=== PATIENT | male | born 1990 | race Caucasian/White ===

== ENCOUNTER 2016-09-24 12:46 | Emergency (ER) | payer OTHER ==
--- NOTE | 2016-09-24 16:00 | ED ---
GI Bleed HPI - General Chief complaint: GI Bleed Stated complaint: Blood in stool Time Seen by Provider: 09/24/16 15:22 Source: patient, RN notes reviewed Mode of arrival: ambulatory Limitations: no limitations - History of Present Illness Initial comments: Patient is a 26-year-old male presents to the emergency room for evaluation of possible GI bleed. Patient states that he has had diarrhea since yesterday. Patient states that he took Pepto-Bismol yesterday morning. Patient states today he noticed black tarry stools. Patient states he's having mid abdominal pain. Patient states he's had about a dozen episodes of diarrhea today. Patient denies recent travel outside the country. Patient denies sick contacts. Patient denies taking recent antibiotics. Patient denies trying new foods. Patient denies recent changes in medications. Patient also states that he's had on and off bright red blood in his stools the past year. Patient denies following up with a physician regarding this issue. Patient denies rectal pain. Patient denies pain or burning during urination. Patient denies chest pain or shortness of breath. Patient states after his episode of diarrhea he felt very dizzy and nauseous. Patient denies shortness of breath. Patient denies any personal or family history of diverticulitis, ulcerative colitis or chronic disease. Patient denies history of hemorrhoids or anal fissures. - Related Data Home Medications Medication Instructions Recorded Confirmed Citalopram Hydrobromide [CeleXA] 20 mg PO HS 09/24/16 09/24/16 Allergies Allergy/AdvReac Type Severity Reaction Status Date / Time No Known Allergies Allergy Verified 09/24/16 15:13 Review of Systems ROS Statement: Those systems with pertinent positive or pertinent negative responses have been documented in the HPI. ROS Other: All systems not noted in ROS Statement are negative. Past Medical History Past Medical History: Mitral Valve Prolapse (MVP) History of Any Multi-Drug Resistant Organisms: None Reported Past Surgical History: Hernia Repair Past Psychological History: No Psychological Hx Reported Smoking Status: Never smoker Past Alcohol Use History: Occasional Past Drug Use History: None Reported General Exam - General Exam Comments Initial Comments: Laying in exam room, no acute distress. Limitations: no limitations General appearance: alert, in no apparent distress Head exam: Present: atraumatic, normocephalic, normal inspection Eye exam: Present: normal appearance ENT exam: Present: normal exam Neck exam: Present: normal inspection Respiratory exam: Present: normal lung sounds bilaterally. Absent: respiratory distress Cardiovascular Exam: Present: regular rate, normal rhythm, normal heart sounds GI/Abdominal exam: Present: soft, normal bowel sounds. Absent: distended, tenderness, guarding, rebound, rigid Rectal exam: Present: normal inspection, normal rectal tone. Absent: hemorrhoids Extremities exam: Present: normal inspection Back exam: Present: normal inspection Neurological exam: Present: alert, oriented X3, CN II-XII intact, normal gait Psychiatric exam: Present: normal affect, normal mood Skin exam: Present: warm, dry, intact, normal color. Absent: rash Course Vital Signs 09/24/16 09/24/16 09/24/16 14:03 16:12 18:00 Temperature 98.0 F Pulse Rate 61 59 L 61 Respiratory 16 20 20 Rate Blood Pressure 116/58 113/53 113/67 O2 Sat by Pulse 99 97 100 Oximetry 09/24/16 18:13 Temperature 98 F Pulse Rate 61 Respiratory 20 Rate Blood Pressure 113/67 O2 Sat by Pulse 100 Oximetry Medical Decision Making - Medical Decision Making Patient is a 26-year-old female presents to the emergency room for evaluation of diarrhea and black tarry stools. Patient does admit he took Pepto-Bismol yesterday. Did not get a decent fecal occult. Barely any stool on rectal exam. Other labs show no concerning findings. Patient did have a vasovagal episode while labs were drawn. Patient is alert and oriented. Vitals are stable. Patient states he is feeling better after nausea medication given. KUB x-ray suggestive of enteritis or ileus. No bowel obstruction or free air. Advised patient to follow-up with primary care provider regarding the rectal bleeding. Patient states uhe understands everything that was discussed with him. Return parameters discussed. Case discussed with Dr. Herring. - Lab Data Result diagrams: 09/24/16 15:59 09/24/16 15:59 Lab Results 09/24/16 09/24/16 09/24/16 Range/Units 15:59 15:59 16:05 WBC 3.9 (3.8-10.6) k/uL RBC 5.04 (4.30-5.90) m/uL Hgb 15.0 (13.0-17.5) gm/dL Hct 44.8 (39.0-53.0) % MCV 89.0 (80.0-100.0) fL MCH 29.8 (25.0-35.0) pg MCHC 33.5 (31.0-37.0) g/dL RDW 12.7 (11.5-15.5) % Plt Count 242 (150-450) k/uL Neutrophils % (Manual) 54.0 % Band Neutrophils % 1.0 % Lymphocytes % (Manual) 35.0 % Monocytes % (Manual) 4.0 % Eosinophils % (Manual) 6.0 % Neutrophils # (Manual) 2.1 (1.3-7.7) k/uL Lymphocytes # (Manual) 1.4 (1.0-4.8) k/uL Monocytes # (Manual) 0.2 (0-1.0) k/uL Eosinophils # (Manual) 0.2 (0-0.7) k/uL Nucleated RBCs 0 (0-0) /100 WBC Manual Slide Review Performed Toxic Granulation Present Sodium 139 (137-145) mmol/L Potassium 4.0 (3.5-5.1) mmol/L Chloride 105 (98-107) mmol/L Carbon Dioxide 27 (22-30) mmol/L Anion Gap 7 mmol/L BUN 11 (9-20) mg/dL Creatinine 0.76 (0.66-1.25) mg/dL Est GFR (MDRD) Af Amer >60 (>60 ml/min/1.73 sqM) Est GFR (MDRD) Non-Af >60 (>60 ml/min/1.73 sqM) Glucose 86 (74-99) mg/dL POC Glucose (mg/dL) 96 (75-99) mg/dL POC Glu Medical Administrative Technician ID Aaliyah, Lauren Calcium 8.8 (8.4-10.2) mg/dL Total Bilirubin 0.5 (0.2-1.3) mg/dL AST 28 (17-59) U/L ALT 34 (21-72) U/L Alkaline Phosphatase 71 (38-126) U/L Total Protein 7.1 (6.3-8.2) g/dL Albumin 4.0 (3.5-5.0) g/dL Amylase 43 (30-110) U/L Lipase 73 (23-300) U/L Stool Occult Blood (Negative) 09/24/16 Range/Units 17:00 WBC (3.8-10.6) k/uL RBC (4.30-5.90) m/uL Hgb (13.0-17.5) gm/dL Hct (39.0-53.0) % MCV (80.0-100.0) fL MCH (25.0-35.0) pg MCHC (31.0-37.0) g/dL RDW (11.5-15.5) % Plt Count (150-450) k/uL Neutrophils % (Manual) % Band Neutrophils % % Lymphocytes % (Manual) % Monocytes % (Manual) % Eosinophils % (Manual) % Neutrophils # (Manual) (1.3-7.7) k/uL Lymphocytes # (Manual) (1.0-4.8) k/uL Monocytes # (Manual) (0-1.0) k/uL Eosinophils # (Manual) (0-0.7) k/uL Nucleated RBCs (0-0) /100 WBC Manual Slide Review Toxic Granulation Sodium (137-145) mmol/L Potassium (3.5-5.1) mmol/L Chloride (98-107) mmol/L Carbon Dioxide (22-30) mmol/L Anion Gap mmol/L BUN (9-20) mg/dL Creatinine (0.66-1.25) mg/dL Est GFR (MDRD) Af Amer (>60 ml/min/1.73 sqM) Est GFR (MDRD) Non-Af (>60 ml/min/1.73 sqM) Glucose (74-99) mg/dL POC Glucose (mg/dL) (75-99) mg/dL POC Glu Medical Administrative Technician ID Calcium (8.4-10.2) mg/dL Total Bilirubin (0.2-1.3) mg/dL AST (17-59) U/L ALT (21-72) U/L Alkaline Phosphatase (38-126) U/L Total Protein (6.3-8.2) g/dL Albumin (3.5-5.0) g/dL Amylase (30-110) U/L Lipase (23-300) U/L Stool Occult Blood Positive (Negative) - Radiology Data Radiology results: report reviewed, image reviewed Disposition Clinical Impression: Diarrhea Disposition: HOME SELF-CARE Condition: Good Instructions: Acute Diarrhea (ED) Additional Instructions: Drink plenty of fluids. Please follow up with primary care provider in 1-2 days. If any new symptom arises or symptoms worsen, return to ER as soon as possible. Referrals: Munira Valenzuela MD [Primary Care Provider] - 1-2 days Time of Disposition: 18:01
[2016-09-24] MEDS ORDERED: ONDANSETRON 4 MG/2 ML VIAL IVP STA (16:02)
[2016-09-24] MEDS ORDERED: SODIUM CHLORIDE 0.9% 1,000 ML IV ONE (16:02)
[2016-09-24] MEDS ORDERED: HYDROcodone/APAP 5-325MG 1 EACH TAB PO STA (16:05)
[2016-09-24 16:09] LABS: Glucose,Whole Blood 96 mg/dL (75-99)
[2016-09-24 16:12] LABS: Aty Lym Flag Slight; CH 29.7; CHCM 33.5; HCT 44.8 % (39.0-53.0); HDW 2.61; MCH 29.8 pg (25.0-35.0); MCHC 33.5 g/dL (31.0-37.0); Mean Platelet Volume 6.7; RBC 5.04 m/uL (4.30-5.90); RDW 12.7 % (11.5-15.5); WBC 3.9 k/uL (3.8-10.6); WBC (Perox) 3.65
[2016-09-24 16:14] VITALS: RESP 20
[2016-09-24 16:26] LABS: ALT 34 U/L (21-72); AST 28 U/L (17-59); Alkaline Phosphatase 71 U/L (38-126); Amylase 43 U/L (30-110); Anion Gap 7 mmol/L; Blood Urea Nitrogen 11 mg/dL (9-20); Calcium 8.8 mg/dL (8.4-10.2); Carbon Dioxide 27 mmol/L (22-30); Chloride 105 mmol/L (98-107); Glucose 86 mg/dL (74-99); Non-African American GFR(MDRD) >60 (>60 ml/min/1.73 sqM); Sodium 139 mmol/L (137-145); Total Bilirubin 0.5 mg/dL (0.2-1.3); Total Protein 7.1 g/dL (6.3-8.2)
[2016-09-24 16:39] LABS: Add Differential Manual Differential
[2016-09-24 17:06] LABS: Manual Review Performed; Nucleated Red Blood Cells 0 /100 WBC (0-0); Total Cells Counted 100; Toxic Granulation Present
--- NOTE | 2016-09-24 17:49 | XR ---
EXAMINATION TYPE: XR KUB DATE OF EXAM: 09/24/2016 5:33 PM CLINICAL DATA: 26-year-old male abdominal pain, blood in stool. COMPARISON: None FINDINGS: Lung bases are clear. No evidence for free intraperitoneal air. No dilated small bowel loops. Small air-fluid levels are present in the central pelvis and within the ascending colon. Scattered mild stool is present. No suspicious calcifications. IMPRESSION: Small air-fluid levels in the lower abdomen and descending colon. Correlate for enteritis or ileus. N o evidence for bowel obstruction or free air.
[2016-09-24 18:08] VITALS: BP 113/67; PULSE 61
[2016-09-24 18:14] VITALS: TEMP 98
== END 2016-09-24 18:17 | disposition home or self-care (01) ==
LOC: EC 12:46
DX: R19.7 Diarrhea, unspecified (principal); R10.9 Unspecified abdominal pain; Z79.899 Other long term (current) drug therapy
CPT/HCPCS: 36415; 80053; 82150; 83690; 85025; 82272; 74000; 99285; 96374; 96361 ×2; J2405

== ENCOUNTER 2019-06-06 11:14 | Inpatient (IN) | payer BC ==
[2019-06-06] MEDS ORDERED: SODIUM CHLORIDE 0.9% 1,000 ML IV STA (12:02)
[2019-06-06] MEDS ORDERED: KETOROLAC 30 MG/ML 1 ML VIAL IVP STA (12:02)
--- NOTE | 2019-06-06 12:11 | ED ---
General Adult HPI - General Source: patient, RN notes reviewed Mode of arrival: wheelchair Limitations: no limitations <Guerrero Amaya - Last Filed: 06/06/19 17:37> <Akila Dumont - Last Filed: 06/13/19 15:10> - General Chief complaint: Fever Stated complaint: flu symptoms Time Seen by Provider: 06/06/19 11:40 - History of Present Illness Initial comments: 29-year-old male with a past medical history mitral valve prolapse presents to the emergency department for a chief complaint of fever. Patient has had a fever for a week now. Family member states patient has had cough congestion sore throat. States that he was seen at [facility] about 4 days ago and tested negative for influenza as well as pneumonia with chest x-ray. States patient does not seem to be getting better. He saw his doctor yesterday and was perscribed azithromycin. Patient started the antibiotic today. However he is lightheaded and nauseous so presented to the emergency department. States his body aches are also causing him significant pain generalized. Patient admits to mild chest pain as well.Patient has no other complaints at this time including shortness of breath, abdominal pain, nausea or vomiting, headache, or visual changes. (Guerrero Amaya) - Related Data Home Medications Medication Instructions Recorded Confirmed Citalopram Hydrobromide [CeleXA] 20 mg PO DIRECTED 09/24/16 06/06/19 Albuterol Sulfate [Ventolin HFA] 2 puff INHALATION RT-Q6H PRN 06/06/19 06/06/19 Ibuprofen 600 mg PO Q6H PRN 06/06/19 06/06/19 Sertraline HCl [Zoloft] 100 mg PO DIRECTED 06/06/19 06/06/19 Previous Rx's Medication Instructions Recorded Levofloxacin [Levaquin] 750 mg PO HS #7 tab 06/10/19 Oseltamivir [Tamiflu] 75 mg PO Q12HR #3 cap 06/10/19 Allergies Allergy/AdvReac Type Severity Reaction Status Date / Time No Known Allergies Allergy Verified 06/06/19 14:49 Review of Systems ROS Other: All systems not noted in ROS Statement are negative. <Guerrero Amaya - Last Filed: 06/06/19 17:37> ROS Other: All systems not noted in ROS Statement are negative. <Akila Dumont A - Last Filed: 06/13/19 15:10> ROS Statement: Those systems with pertinent positive or pertinent negative responses have been documented in the HPI. Past Medical History Past Medical History: Mitral Valve Prolapse (MVP) History of Any Multi-Drug Resistant Organisms: None Reported Past Surgical History: Hernia Repair Past Psychological History: No Psychological Hx Reported Smoking Status: Never smoker Past Alcohol Use History: Occasional Past Drug Use History: None Reported - Past Family History Mother Family Medical History: Congestive Heart Failure (CHF), Myocardial Infarction (VA), Thyroid Disorder Additional Family Medical History / Comment(s): Mother had a VA at the age of 45yrs,. Father Family Medical History: Diabetes Mellitus, Hypertension Additional Family Medical History / Comment(s): Type II diabetes. <Guerrero Amaya P - Last Filed: 06/06/19 17:37> General Exam Limitations: no limitations General appearance: alert, in no apparent distress Head exam: Present: atraumatic, normocephalic, normal inspection Eye exam: Present: normal appearance, PERRL, EOMI. Absent: scleral icterus, co njunctival injection, periorbital swelling ENT exam: Present: normal exam, mucous membranes moist, TM's normal bilaterally, normal external ear exam. Absent: normal oropharynx (Erythematous throat however uvula midline, no tonsillar exudates noted bilaterally) Neck exam: Present: normal inspection, full ROM. Absent: tenderness, meningismus, lymphadenopathy Respiratory exam: Present: normal lung sounds bilaterally. Absent: respiratory distress, wheezes, rales, rhonchi, stridor Cardiovascular Exam: Present: regular rate, normal rhythm, normal heart sounds. Absent: systolic murmur, diastolic murmur, rubs, gallop, clicks GI/Abdominal exam: Present: soft, normal bowel sounds. Absent: distended, tenderness, guarding, rebound, rigid Back exam: Absent: CVA tenderness (R), CVA tenderness (L) Neurological exam: Present: alert <Guerrero Amaya P - Last Filed: 06/06/19 17:37> Course Vital Signs 06/06/19 06/06/19 06/06/19 11:15 12:42 14:43 Temperature 102.5 F H 103.7 F H Pulse Rate 100 79 71 Respiratory 18 18 16 Rate Blood Pressure 116/68 132/68 113/64 O2 Sat by Pulse 97 96 Oximetry 06/06/19 06/06/19 06/06/19 14:54 15:00 15:25 Temperature 98.7 F Pulse Rate 72 76 72 Respiratory 16 Rate Blood Pressure 131/70 O2 Sat by Pulse 98 Oximetry EKG Findings - EKG Comments: EKG Findings:: Normal sinus rhythm, ventricular rate 82, RI interval 132, QTC 41 <Guerrero Amaya - Last Filed: 06/06/19 17:37> Medical Decision Making - Lab Data Result diagrams: 06/06/19 12:40 06/06/19 12:40 <Guerrero Amaya - Last Filed: 06/06/19 17:37> - Lab Data Result diagrams: 06/10/19 09:05 06/09/19 09:17 <Akila Dumont - Last Filed: 06/13/19 15:10> - Medical Decision Making Patient is febrile here in the emergency department. He has a fever of 103.7. Patient was given Toradol and Tylenol. Exam reveals diminished lung sounds bilaterally. Patient does have a history of asthma and was given a breathing tr eatment here. CBC unremarkable. White blood cell count is 9.4. CMP does show mild transaminitis, of questionable clinical significance. Chest x-ray showed patient had a focal multilobar pneumonia. She does not have any medical history aside from asthma and mitral valve prolapse, no immunosuppressants onboard aside from 1 dose of steroids 2 days ago from [facility]. Patient also tested for influenza B+. Patient was started on Rocephin and azithromycin. At this time given multifocal multilobar pneumonia as well as concurrent influenza patient will be treated with IV antibiotics. Dr. Dumont spoke with Dr. Pierson who recommends starting Tamiflu as well as consult to infectious disease. (Guerrero Amaya) I was available for consultation in the emergency department. The history and physical exam were done by the midlevel provider. I was consulted for this patients care. I reviewed the case with the midlevel provider and based on their presentation of the patient, I agree with the assessment, medical decision making and plan of care as documented. I discussed the case with Dr. Pierson who accepted admission. Chart was dictated using [employer] dictation software. Attempts were made to correct any dictation errors however some typographical errors may persist. (Akila Dumont) - Lab Data Lab Results 06/06/19 06/06/19 06/06/19 Range/Units 12:40 12:40 12:40 WBC 9.4 (3.8-10.6) k/uL RBC 5.07 (4.30-5.90) m/uL Hgb 14.7 (13.0-17.5) gm/dL Hct 44.1 (39.0-53.0) % MCV 86.9 (80.0-100.0) fL MCH 29.0 (25.0-35.0) pg MCHC 33.4 (31.0-37.0) g/dL RDW 12.2 (11.5-15.5) % Plt Count 248 (150-450) k/uL Neutrophils % 87 % Lymphocytes % 6 % Monocytes % 5 % Eosinophils % 0 % Basophils % 1 % Neutrophils # 8.2 H (1.3-7.7) k/uL Lymphocytes # 0.6 L (1.0-4.8) k/uL Monocytes # 0.5 (0-1.0) k/uL Eosinophils # 0.0 (0-0.7) k/uL Basophils # 0.1 (0-0.2) k/uL Sodium 136 L (137-145) mmol/L Potassium 4.1 (3.5-5.1) mmol/L Chloride 99 (98-107) mmol/L Carbon Dioxide 26 (22-30) mmol/L Anion Gap 11 mmol/L BUN 7 L (9-20) mg/dL Creatinine 0.78 (0.66-1.25) mg/dL Est GFR (CKD-EPI)AfAm >90 (>60 ml/min/1.73 sqM) Est GFR (CKD-EPI)NonAf >90 (>60 ml/min/1.73 sqM) Glucose 113 H (74-99) mg/dL Plasma Lactic Acid Hans (0.7-2.0) mmol/L Calcium 8.8 (8.4-10.2) mg/dL Total Bilirubin 1.0 (0.2-1.3) mg/dL AST 67 H (17-59) U/L ALT 67 H (4-49) U/L Alkaline Phosphatase 129 H (38-126) U/L Troponin I (0.000-0.034) ng/mL Total Protein 6.9 (6.3-8.2) g/dL Albumin 3.7 (3.5-5.0) g/dL Heterophile Antibody Negative (Negative) Influenza Type A RNA (Not Detectd) Influenza Type B (PCR) (Not Detectd) Group A Strep Rapid (Negative) 06/06/19 06/06/19 06/06/19 Range/Units 12:40 12:40 12:40 WBC (3.8-10.6) k/uL RBC (4.30-5.90) m/uL Hgb (13.0-17.5) gm/dL Hct (39.0-53.0) % MCV (80.0-100.0) fL MCH (25.0-35.0) pg MCHC (31.0-37.0) g/dL RDW (11.5-15.5) % Plt Count (150-450) k/uL Neutrophils % % Lymphocytes % % Monocytes % % Eosinophils % % Basophils % % Neutrophils # (1.3-7.7) k/uL Lymphocytes # (1.0-4.8) k/uL Monocytes # (0-1.0) k/uL Eosinophils # (0-0.7) k/uL Basophils # (0-0.2) k/uL Sodium (137-145) mmol/L Potassium (3.5-5.1) mmol/L Chloride (98-107) mmol/L Carbon Dioxide (22-30) mmol/L Anion Gap mmol/L BUN (9-20) mg/dL Creatinine (0.66-1.25) mg/dL Est GFR (CKD-EPI)AfAm (>60 ml/min/1.73 sqM) Est GFR (CKD-EPI)NonAf (>60 ml/min/1.73 sqM) Glucose (74-99) mg/dL Plasma Lactic Acid Hans (0.7-2.0) mmol/L Calcium (8.4-10.2) mg/dL Total Bilirubin (0.2-1.3) mg/dL AST (17-59) U/L ALT (4-49) U/L Alkaline Phosphatase (38-126) U/L Troponin I <0.012 (0.000-0.034) ng/mL Total Protein (6.3-8.2) g/dL Albumin (3.5-5.0) g/dL Heterophile Antibody (Negative) Influenza Type A RNA Not Detected (Not Detectd) Influenza Type B (PCR) Detected H (Not Detectd) Group A Strep Rapid Negative (Negative) 06/06/19 Range/Units 12:40 WBC (3.8-10.6) k/uL RBC (4.30-5.90) m/uL Hgb (13.0-17.5) gm/dL Hct (39.0-53.0) % MCV (80.0-100.0) fL MCH (25.0-35.0) pg MCHC (31.0-37.0) g/dL RDW (11.5-15.5) % Plt Count (150-450) k/uL Neutrophils % % Lymphocytes % % Monocytes % % Eosinophils % % Basophils % % Neutrophils # (1.3-7.7) k/uL Lymphocytes # (1.0-4.8) k/uL Monocytes # (0-1.0) k/uL Eosinophils # (0-0.7) k/uL Basophils # (0-0.2) k/uL Sodium (137-145) mmol/L Potassium (3.5-5.1) mmol/L Chloride (98-107) mmol/L Carbon Dioxide (22-30) mmol/L Anion Gap mmol/L BUN (9-20) mg/dL Creatinine (0.66-1.25) mg/dL Est GFR (CKD-EPI)AfAm (>60 ml/min/1.73 sqM) Est GFR (CKD-EPI)NonAf (>60 ml/min/1.73 sqM) Glucose (74-99) mg/dL Plasma Lactic Acid Hans 1.4 (0.7-2.0) mmol/L Calcium (8.4-10.2) mg/dL Total Bilirubin (0.2-1.3) mg/dL AST (17-59) U/L ALT (4-49) U/L Alkaline Phosphatase (38-126) U/L Troponin I (0.000-0.034) ng/mL Total Protein (6.3-8.2) g/dL Albumin (3.5-5.0) g/dL Heterophile Antibody (Negative) Influenza Type A RNA (Not Detectd) Influenza Type B (PCR) (Not Detectd) Group A Strep Rapid (Negative) Disposition Is patient prescribed a controlled substance at d/c from ED?: No Time of Disposition: 14:04 <Guerrero Amaya P - Last Filed: 06/06/19 17:37> <Akila Dumont - Last Filed: 06/13/19 15:10> Clinical Impression: Multifocal pneumonia, Influenza B Disposition: ADMITTED IP TO THIS HOSP Condition: Fair
[2019-06-06 13:09] LABS: Basophils # (A) 0.1 k/uL (0-0.2); Basophils % (A) 1 %; Eosinophils % (A) 0 %; HCT 44.1 % (39.0-53.0); HGB 14.7 gm/dL (13.0-17.5); Lymphocytes # (A) 0.6 k/uL (1.0-4.8); Lymphocytes % (A) 6 %; MCHC 33.4 g/dL (31.0-37.0); MCV 86.9 fL (80.0-100.0); Mean Platelet Volume 7.8; Monocytes # (A) 0.5 k/uL (0-1.0); Monocytes % (A) 5 %; Neutrophils # (A) 8.2 k/uL (1.3-7.7); Neutrophils % (A) 87 %; Platelet Count 248 k/uL (150-450); RBC 5.07 m/uL (4.30-5.90); RDW 12.2 % (11.5-15.5); WBC 9.4 k/uL (3.8-10.6)
--- NOTE | 2019-06-06 13:11 | XR ---
EXAMINATION TYPE: XR chest 2V DATE OF EXAM: 06/06/2019 COMPARISON: Chest x-ray December 15, 2009. HISTORY: Flulike symptoms with cough and fever. TECHNIQUE: Frontal and lateral views of the chest are obtained. FINDINGS: There is multifocal multilobar airspace opacities involving bilateral lower lobes and post erior inferior aspect right upper lobe. No pleural effusion or pneumothorax seen bilaterally. The ca rdiac silhouette size is within normal limits. The osseous structures are intact. IMPRESSION: Bilateral multifocal multilobar pneumonia involving bilateral lower lobes and anterior in ferior aspect right upper lobe.
[2019-06-06 13:12] LABS: ALT 67 U/L (4-49); AST 67 U/L (17-59); African American GFR (CKD) >90 (>60 ml/min/1.73 sqM); Albumin 3.7 g/dL (3.5-5.0); Alkaline Phosphatase 129 U/L (38-126); Anion Gap 11 mmol/L; Blood Urea Nitrogen 7 mg/dL (9-20); Calcium 8.8 mg/dL (8.4-10.2); Carbon Dioxide 26 mmol/L (22-30); Chloride 99 mmol/L (98-107); Glucose 113 mg/dL (74-99); Non-African American GFR(CKD) >90 (>60 ml/min/1.73 sqM); Potassium 4.1 mmol/L (3.5-5.1); Sodium 136 mmol/L (137-145); Total Protein 6.9 g/dL (6.3-8.2)
[2019-06-06] MEDS ORDERED: cefTRIAXone IN SWFI 1,000 MG/10 ML SYRINGE IVP STA (13:29)
[2019-06-06] MEDS ORDERED: AZITHROMYCIN 500 MG in SODIUM CHLORIDE 0.9% 250 ML IVPB STA (13:29)
[2019-06-06] MEDS ORDERED: IPRATROPIUM-ALBUTEROL 3 ML NEB INHALATION STA (13:58)
[2019-06-06] MEDS ORDERED: PNEUMONIA PROTOCOL UTILIZED 1 EACH MISC PO PRN (14:06)
[2019-06-06] MEDS ORDERED: ACETAMINOPHEN TAB 500 MG TAB PO PRN (14:07)
[2019-06-06] MEDS ORDERED: OSELTAMIVIR 75 MG CAP PO STA (17:37)
[2019-06-06] MEDS: SODIUM CHLORIDE 0.9% 1,000 ML IV SCH (18:01)
[2019-06-06] MEDS ORDERED: ALBUTEROL NEBULIZED 2.5 MG/3 ML INHALATION PRN (18:35)
[2019-06-06] MEDS ORDERED: CITALOPRAM HYDROBROMIDE 20 MG TAB PO ONE (18:45)
[2019-06-06] MEDS: IPRATROPIUM-ALBUTEROL 3 ML NEB INHALATION PRN (19:56)
[2019-06-06] MEDS: IBUPROFEN 800 MG TAB PO PRN (21:40)
[2019-06-07] MEDS: SODIUM CHLORIDE 0.9% 1,000 ML IV SCH ×3 (06:07→21:58)
[2019-06-07 07:44] LABS: Basophils % (A) 0 %; Eosinophils # (A) 0.1 k/uL (0-0.7); Eosinophils % (A) 1 %; HCT 39.8 % (39.0-53.0); HGB 13.1 gm/dL (13.0-17.5); Lymphocytes # (A) 1.3 k/uL (1.0-4.8); Lymphocytes % (A) 15 %; MCH 29.3 pg (25.0-35.0); MCV 88.8 fL (80.0-100.0); Mean Platelet Volume 7.6; Monocytes # (A) 0.5 k/uL (0-1.0); Monocytes % (A) 6 %; Neutrophils # (A) 6.6 k/uL (1.3-7.7); Neutrophils % (A) 76 %; Platelet Count 309 k/uL (150-450); RBC 4.48 m/uL (4.30-5.90); RDW 12.3 % (11.5-15.5); WBC 8.6 k/uL (3.8-10.6)
[2019-06-07 07:58] LABS: African American GFR (CKD) >90 (>60 ml/min/1.73 sqM); Anion Gap 7 mmol/L; Blood Urea Nitrogen 7 mg/dL (9-20); Carbon Dioxide 26 mmol/L (22-30); Chloride 108 mmol/L (98-107); Glucose 93 mg/dL (74-99); Non-African American GFR(CKD) >90 (>60 ml/min/1.73 sqM); Potassium 4.3 mmol/L (3.5-5.1); Sodium 141 mmol/L (137-145)
[2019-06-07] MEDS: SERTRALINE 100 MG TAB PO SCH (08:25)
[2019-06-07] MEDS: OSELTAMIVIR 75 MG CAP PO SCH ×2 (08:25→21:58)
[2019-06-07] MEDS: IPRATROPIUM-ALBUTEROL 3 ML NEB INHALATION PRN (08:49)
--- NOTE | 2019-06-07 09:17 | XR ---
EXAMINATION TYPE: XR chest 2V DATE OF EXAM: 06/07/2019 HISTORY: pneumonia. REFERENCE: Previous study dated 06/06/2019. FINDINGS: Bilateral lower lobe and posterior segment right upper lobe pneumonias are again identified . These may have cleared partially from the previous study. No definite pleural fluid is seen. The he art is not enlarged. IMPRESSION: IMPROVING MULTIFOCAL PNEUMONIA.
--- NOTE | 2019-06-07 09:59 | P.HPIM ---
History of Present Illness H&P Date: 06/06/19 29-year-old male with a past medical history mitral valve prolapse presents to the emergency department for a chief complaint of fever. Patient has had a fever for a week now. Family member states patient has had cough congestion sore throat. States that he was seen at [facility] about 4 days ago and tested negative for influenza as well as pneumonia with chest x-ray. States patient does not seem to be getting better. He saw his doctor yesterday and was perscribed azithromycin. Patient started the antibiotic today. However he is lightheaded and nauseous so presented to the emergency department. States his body aches are also causing him significant pain generalized. Patient admits to mild chest pain as well.Patient has no other complaints at this time including shortness of breath, abdominal pain, nausea or vomiting, headache, or visual changes. In the ED patient was found to be febrile with a temperature of 103.7; white blood count was 19.4; CMP shows mild transaminitis; chest x-ray done shows focal multilobar pneumonia; patient was started on IV Rocephin and azithromycin along with Tamiflu for influenza B; patient is admitted to the hospital for further tr eatment and ID evaluation Review of Systems CONSTITUTIONAL: No fever, no malaise, no fatigue. HEENT: No recent visual problems or hearing problems. Denied any sore throat. CARDIOVASCULAR: No chest pain, orthopnea, PND, no palpitations, no syncope. PULMONARY: No shortness of breath, no cough, no hemoptysis. GASTROINTESTINAL: No diarrhea, no nausea, no vomiting, no abdominal pain. NEUROLOGICAL: No headaches, no weakness, no numbness. HEMATOLOGICAL: Denies any bleeding or petechiae. GENITOURINARY: Denies any burning micturition, frequency, or urgency. MUSCULOSKELETAL/RHEUMATOLOGICAL: Denies any joint pain, swelling, or any muscle pain. ENDOCRINE: Denies any polyuria or polydipsia. The rest of the 14-point review of systems is negative. Past Medical History Past Medical History: Mitral Valve Prolapse (MVP) History of Any Multi-Drug Resistant Organisms: None Reported Past Surgical History: Hernia Repair Additional Past Surgical History / Comment(s): L inguinal hernia repair, L arm fracture with surgical repair. Past Anesthesia/Blood Transfusion Reactions: No Reported Reaction Past Psychological History: No Psychological Hx Reported Smoking Status: Never smoker Past Alcohol Use History: Occasional Past Drug Use History: None Reported - Past Family History Mother Family Medical History: Congestive Heart Failure (CHF), Myocardial Infarction ([place]), Thyroid Disorder Additional Family Medical History / Comment(s): Mother had a [place] at the age of 45yrs,. Father Family Medical History: Diabetes Mellitus, Hypertension Additional Family Medical History / Comment(s): Type II diabetes. Medications and Allergies Home Medications Medication Instructions Recorded Confirmed Type Citalopram Hydrobromide [CeleXA] 20 mg PO DIRECTED 09/24/16 06/06/19 History Albuterol Sulfate [Ventolin HFA] 2 puff INHALATION RT-Q6H PRN 06/06/19 06/06/19 History Azithromycin [Zithromax] See Taper PO DAILY 06/06/19 06/06/19 History Ibuprofen 600 mg PO Q6H PRN 06/06/19 06/06/19 History Sertraline HCl [Zoloft] 100 mg PO DIRECTED 06/06/19 06/06/19 History Allergies Allergy/AdvReac Type Severity Reaction Status Date / Time No Known Allergies Allergy Verified 06/06/19 14:49 Physical Exam Vitals: Vital Signs Temp Pulse Pulse Resp BP BP Pulse Ox 06/06/19 16:30 98.7 F 100 16 107/66 99 06/06/19 16:00 16 06/06/19 15:25 98.7 F 72 16 131/70 98 06/06/19 15:00 76 06/06/19 14:54 72 06/06/19 14:43 71 16 113/64 96 06/06/19 12:42 103.7 F H 79 18 132/68 06/06/19 11:15 102.5 F H 100 18 116/68 97 Intake and Output 06/06/19 06/06/19 06/06/19 06:59 14:59 22:59 Intake Total 1200 Balance 1200 Intake: Amount of Fluid Infused ( 1200 ml) Other: Weight 72.575 kg 72.575 kg GENERAL: The patient is alert and oriented x3, not in any acute distress. Well developed, well nourished. HEENT: Pupils are round and equally reacting to light. EOMI. No scleral icterus. No conjunctival pallor. Normocephalic, atraumatic. No pharyngeal erythema. No thyromegaly. CARDIOVASCULAR: S1 and S2 present. No murmurs, rubs, or gallops. PULMONARY: Decreased breath sounds bilateral lung redd along with scattered rhonchi and wheezing. ABDOMEN: Soft, nontender, nondistended, normoactive bowel sounds. No palpable organomegaly. MUSCULOSKELETAL: No joint swelling or deformity. EXTREMITIES: No cyanosis, clubbing, or pedal edema. NEUROLOGICAL: Gross neurological examination did not reveal any focal deficits. SKIN: No rashes. Results CBC & Chem 7: 06/07/19 07:20 06/07/19 07:20 Labs: Abnormal Lab Results - Last 24 Hours (Table) 06/06/19 06/06/19 06/06/19 Range/Units 12:40 12:40 12:40 Neutrophils # 8.2 H (1.3-7.7) k/uL Lymphocytes # 0.6 L (1.0-4.8) k/uL Sodium 136 L (137-145) mmol/L BUN 7 L (9-20) mg/dL Glucose 113 H (74-99) mg/dL AST 67 H (17-59) U/L ALT 67 H (4-49) U/L Alkaline Phosphatase 129 H (38-126) U/L Influenza Type B (PCR) Detected H (Not Detectd) Microbiology - Last 24 Hours (Table) 06/06/19 12:40 Group A Strep Throat Culture - Preliminary Throat Thrombosis Risk Factor Assmnt - Choose All That Apply Any of the Below Risk Factors Present?: Yes Each Factor Represents 1 point: Serious lung disease incl. pneumonia (< 1month) Other Risk Factors: No Other congenital or acquired thrombophilia - If yes, enter type in comment: No Thrombosis Risk Factor Assessment Total Risk Factor Score: 1 Thrombosis Risk Factor Assessment Level: Low Risk Assessment and Plan Assessment: 1. Multifocal pneumonia - We will continue with IV Rocephin and azithromycin; DuoNeb nebulizer treatments every 4 hours and when necessary; sputum and blood cultures are obtained in ED; we will adjust antibiotic therapy once culture results are available; O2 2 L per nasal cannula as needed; symptomatic treatment of pneumonia 2. Influenza PE; start patient on Tamiflu 75 mg by mouth every 12 hours; symptomatic treatment 3. Mild transaminitis; we will monitor liver enzymes and initiate further workup if transaminases continue to trend up 4. Mild hyponatremia; continue with normal saline for IV fluid hydration; monitor electrolytes closely 5. Mitral valve prolapse; asymptomatic; outpatient treatment 6. DVT prophylaxis; SCDs CODE STATUS; full code Time with Patient: Greater than 30
[2019-06-07 10:40] VITALS: BMI 22.3
[2019-06-07] MEDS: AZITHROMYCIN 500 MG TAB PO SCH (17:16)
--- NOTE | 2019-06-07 17:23 | P.PN ---
Subjective Progress Note Date: 06/07/19 Principal diagnosis: Multifocal pneumonia Influenza B Transaminitis 06/07/2019 Patient is seen and evaluated in room at bedside; continues to complain of s hortness of breath with minimal activity Vital signs are reviewed with a temperature of 98, pulse 64, respirations 16 and blood pressure of 119/60 Lab review shows a white blood count of 8.6 and stable chemical profile We will continue with IV antibiotics and Tamiflu; ID is consulted and recommendations are pending Objective - Vital Signs Vital signs: Vital Signs Temp 98.0 F 06/07/19 13:44 Pulse 64 06/07/19 13:44 Resp 16 06/07/19 13:44 BP 119/60 06/07/19 13:44 Pulse Ox 97 06/07/19 13:44 Intake & Output 06/06/19 06/07/19 06/07/19 18:59 06:59 18:59 Intake Total 1200 300 320 Balance 1200 300 320 Weight 72.575 kg 72.575 kg Intake: Amount of Fluid Infused ( 1200 ml) Oral 300 320 Other: # Voids 2 2 # Bowel Movements 0 - Exam PHYSICAL EXAMINATION: GENERAL: The patient is alert and oriented x3, not in any acute distress. Well developed, well nourished. HEENT: Pupils are round and equally reacting to light. EOMI. No scleral icterus. No conjunctival pallor. Normocephalic, atraumatic. No pharyngeal erythema. No thyromegaly. CARDIOVASCULAR: S1 and S2 present. No murmurs, rubs, or gallops. PULMONARY: Chest is clear to auscultation, no wheezing or crackles. ABDOMEN: Soft, nontender, nondistended, normoactive bowel sounds. No palpable organomegaly. MUSCULOSKELETAL: No joint swelling or deformity. EXTREMITIES: No cyanosis, clubbing, or pedal edema. NEUROLOGICAL: Gross neurological examination did not reveal any focal deficits. SKIN: No rashes. - Labs CBC & Chem 7: 06/07/19 07:20 06/07/19 07:20 Labs: Abnormal Lab Results - Last 24 Hours (Table) 06/07/19 Range/Units 07:20 Chloride 108 H (98-107) mmol/L BUN 7 L (9-20) mg/dL Creatinine 0.60 L (0.66-1.25) mg/dL Calcium 8.0 L (8.4-10.2) mg/dL Microbiology - Last 24 Hours (Table) 06/06/19 14:50 Blood Culture - Preliminary Blood No Growth after 24 hours 06/06/19 12:40 Group A Strep Throat Culture - Preliminary Throat Assessment and Plan Assessment: 1. Multifocal pneumonia - We will continue with IV Rocephin and azithromycin; DuoNeb nebulizer treatments every 4 hours and when necessary; sputum and blood cultures are obtained in ED; we will adjust antibiotic therapy once culture results are available; O2 2 L per nasal cannula as needed; symptomatic treatment of pneumonia 2. Influenza PE; start patient on Tamiflu 75 mg by mouth every 12 hours; symptomatic treatment 3. Mild transaminitis; we will monitor liver enzymes and initiate further workup if transaminases continue to trend up 4. Mild hyponatremia; continue with normal saline for IV fluid hydration; monitor electrolytes closely 5. Mitral valve prolapse; asymptomatic; outpatient treatment 6. DVT prophylaxis; SCDs CODE STATUS; full code
[2019-06-07] MEDS: IBUPROFEN 800 MG TAB PO PRN (19:30)
--- NOTE | 2019-06-07 23:21 | P.CONS ---
History of Present Illness - Reason for Consult Consult date: 06/07/19 multifocal pneumonia Requesting physician: Darren Pierson - Chief Complaint Fever and cough x 4 days - History of Present Illness Patient is a 29-year-old male presented to the ER at [facility] yesterday with a chief complaints of fever cough and congestion apparently his symptom has been going on for about a week and he was seen at [facility] 4 days ago patient tested negative for both influenza and pneumonia and he was advised some symptomatic treatment subsequently evaluated by his primary care physician yesterday day before presentation the hospital with the patient started on Zithromax however the patient did have persistent fever patient did have some sore throat but no other URI symptoms patient did have a cough which is moderate intensity and was bringing up some sputum no hemoptysis denies any pleuritic chest pain no nausea no vomiting no abdominal pain no diarrhea or any urinary symptoms on presentation to hospital appeared to have a fever of 102 F patient was tachycardic with a heart rate of 100 white count was normal influenza B serology came back positive blood cultures so far negative patient did have a chest x-ray which shows bilateral multifocal multilobar pneumonia patient has been admitted to hospital he was started on Rocephin and Zithromax Tamiflu infectious disease was consulted for further recommendation about antibiotic therapy. Review of Systems Positive point has been mentioned in HPI rest of the systems are negative Past Medical History Past Medical History: Mitral Valve Prolapse (MVP) History of Any Multi-Drug Resistant Organisms: None Reported Past Surgical History: Hernia Repair Additional Past Surgical History / Comment(s): L inguinal hernia repair, L arm fracture with surgical repair. Past Anesthesia/Blood Transfusion Reactions: No Reported Reaction Past Psychological History: No Psychological Hx Reported Smoking Status: Never smoker Past Alcohol Use History: Occasional Past Drug Use History: None Reported - Past Family History Mother Family Medical History: Congestive Heart Failure (CHF), Myocardial Infarction ([place]), Thyroid Disorder Additional Family Medical History / Comment(s): Mother had a [place] at the age of 45yrs,. Father Family Medical History: Diabetes Mellitus, Hypertension Additional Family Medical History / Comment(s): Type II diabetes. Medications and Allergies Home Medications Medication Instructions Recorded Confirmed Type Citalopram Hydrobromide [CeleXA] 20 mg PO DIRECTED 09/24/16 06/06/19 History Albuterol Sulfate [Ventolin HFA] 2 puff INHALATION RT-Q6H PRN 06/06/19 06/06/19 History Azithromycin [Zithromax] See Taper PO DAILY 06/06/19 06/06/19 History Ibuprofen 600 mg PO Q6H PRN 06/06/19 06/06/19 History Sertraline HCl [Zoloft] 100 mg PO DIRECTED 06/06/19 06/06/19 History Allergies Allergy/AdvReac Type Severity Reaction Status Date / Time No Known Allergies Allergy Verified 06/06/19 14:49 Physical Exam Vitals: Vital Signs Temp Pulse Pulse Resp BP Pulse Ox 06/07/19 21:50 98.7 F 67 20 116/55 96 06/07/19 13:44 98.0 F 64 16 119/60 97 06/07/19 09:06 69 06/07/19 08:49 64 06/07/19 05:02 96.1 F L 50 L 20 107/57 97 06/07/19 00:00 18 Intake and Output 06/07/19 06/07/19 06/08/19 14:59 22:59 06:59 Intake Total 320 200 Balance 320 200 Intake: Oral 320 200 Other: # Voids 2 1 Weight 72.575 kg GENERAL DESCRIPTION: Middle-aged male lying in bed, no distress. No tachypnea or accessory muscle of respiration use. HEENT: Shows Pallor , no scleral icterus. Oral mucous membrane is dry. NECK: Trachea central, no thyromegaly. LUNGS: Unlabored breathing. Decreased breath sound at the base. No wheeze or crackle. HEART: S1, S2, regular rate and rhythm. ABDOMEN: Soft, no tenderness , guarding or rigidity EXTREMITIES: No edema of feet. SKIN: No rash, no masses palpable. NEUROLOGICAL: The patient is awake, alert, oriented x3, mood and affect normal. Results CBC & Chem 7: 06/07/19 07:20 06/07/19 07:20 Labs: Abnormal Lab Results - Last 24 Hours (Table) 06/07/19 Range/Units 07:20 Chloride 108 H (98-107) mmol/L BUN 7 L (9-20) mg/dL Creatinine 0.60 L (0.66-1.25) mg/dL Calcium 8.0 L (8.4-10.2) mg/dL Microbiology - Last 24 Hours (Table) 06/06/19 14:50 Blood Culture - Preliminary Blood No Growth after 24 hours Assessment and Plan Assessment: patient presented to hospital with sepsis in this patient who did have a fever tachycardia source is acute influenza with secondary bacterial pneumonia failing outpatient Zithromax therapy more likely significant and quite pathogen in view of overall improvement on Rocephin since yesterday and resolution of his fever (1) Influenza B Current Visit: Yes Status: Acute Code(s): J10.1 - FLU DUE TO OTH IDENT INFLUENZA VIRUS W OTH RESP MANIFEST SNOMED Code(s): 29937175 (2) Multifocal pneumonia Current Visit: Yes Status: Acute Code(s): J18.9 - PNEUMONIA, UNSPECIFIED ORGANISM SNOMED Code(s): 243865376 Plan: 1-Tamiflu 75 mg p.o. twice a day for 5 days 2-Rocephin 1 g daily and levaquin 500 p.o. daily 3-obtain a sputum for Gram stain and culture 4-Gentle IV fluid We will follow on clinical condition and cultures to further adjust medication if needed Thank you for this consultation we will follow the patient along with you Time with Patient: Greater than 30
[2019-06-08] MEDS: SODIUM CHLORIDE 0.9% 1,000 ML IV SCH ×2 (07:06→14:56)
[2019-06-08 08:19] LABS: Basophils % (A) 0 %; Eosinophils # (A) 0.2 k/uL (0-0.7); Eosinophils % (A) 2 %; HCT 40.5 % (39.0-53.0); HGB 13.4 gm/dL (13.0-17.5); Lymphocytes # (A) 1.6 k/uL (1.0-4.8); Lymphocytes % (A) 22 %; MCH 29.2 pg (25.0-35.0); MCHC 32.9 g/dL (31.0-37.0); MCV 88.7 fL (80.0-100.0); Mean Platelet Volume 7.7; Monocytes # (A) 0.5 k/uL (0-1.0); Monocytes % (A) 7 %; Neutrophils # (A) 4.7 k/uL (1.3-7.7); Neutrophils % (A) 67 %; Platelet Count 386 k/uL (150-450); RBC 4.57 m/uL (4.30-5.90); RDW 12.4 % (11.5-15.5); WBC 7.1 k/uL (3.8-10.6)
[2019-06-08 08:31] LABS: ALT 64 U/L (4-49); AST 46 U/L (17-59); African American GFR (CKD) >90 (>60 ml/min/1.73 sqM); Albumin 2.8 g/dL (3.5-5.0); Alkaline Phosphatase 77 U/L (38-126); Anion Gap 4 mmol/L; Bilirubin, Delta 0.2 mg/dL (0.0-0.2); Bilirubin,Unconjugated 0.2 mg/dL (0.0-1.1); Blood Urea Nitrogen 7 mg/dL (9-20); Calcium 8.3 mg/dL (8.4-10.2); Carbon Dioxide 28 mmol/L (22-30); Chloride 109 mmol/L (98-107); Glucose 89 mg/dL (74-99); Non-African American GFR(CKD) >90 (>60 ml/min/1.73 sqM); Potassium 4.3 mmol/L (3.5-5.1); Sodium 141 mmol/L (137-145); Total Bilirubin 0.4 mg/dL (0.2-1.3); Total Protein 5.7 g/dL (6.3-8.2)
[2019-06-08] MEDS: SERTRALINE 100 MG TAB PO SCH (08:55)
[2019-06-08] MEDS: OSELTAMIVIR 75 MG CAP PO SCH ×2 (08:55→21:16)
[2019-06-08] MEDS: AZITHROMYCIN 500 MG TAB PO SCH (14:56)
[2019-06-08] MEDS: IBUPROFEN 800 MG TAB PO PRN (16:20)
[2019-06-08] MEDS: IPRATROPIUM-ALBUTEROL 3 ML NEB INHALATION PRN (16:41)
--- NOTE | 2019-06-08 17:19 | P.PN ---
Subjective Progress Note Date: 06/08/19 Principal diagnosis: Multifocal pneumonia Influenza B Transaminitis 06/07/2019 Patient is seen and evaluated in room at bedside; continues to complain of s hortness of breath with minimal activity Vital signs are reviewed with a temperature of 98, pulse 64, respirations 16 and blood pressure of 119/60 Lab review shows a white blood count of 8.6 and stable chemical profile We will continue with IV antibiotics and Tamiflu; ID is consulted and recommendations are pending 06/08/2019; 24-hour interval change Patient is seen and evaluated in room at bedside; patient reports continued feeling of shortness of breath with minimal activity; cough productive of greenish yellow sputum; repeat chest x-ray done yesterday shows improvement in multifocal infiltrates Patient remains on IV Rocephin and oral Zithromax 500 mg daily; continue with DuoNeb nebulizer treatments every 4 hours when necessary; IDs following and recommending to continue IV antibiotics with possible transition to oral in next 24-48 hours pending clinical improvement Objective - Vital Signs Vital signs: Vital Signs Temp 97.7 F 06/08/19 04:30 Pulse 46 L 06/08/19 04:30 Resp 18 06/08/19 04:30 BP 125/76 06/08/19 04:30 Pulse Ox 97 06/08/19 04:30 Intake & Output 06/07/19 06/08/19 06/08/19 18:59 06:59 18:59 Intake Total 320 300 Balance 320 300 Weight 72.575 kg Intake: Oral 320 300 Other: # Voids 2 1 # Bowel Movements 0 - Exam PHYSICAL EXAMINATION: GENERAL: The patient is alert and oriented x3, not in any acute distress. Well developed, well nourished. HEENT: Pupils are round and equally reacting to light. EOMI. No scleral icterus. No conjunctival pallor. Normocephalic, atraumatic. No pharyngeal erythema. No thyromegaly. CARDIOVASCULAR: S1 and S2 present. No murmurs, rubs, or gallops. PULMONARY: Chest is clear to auscultation, no wheezing or crackles. ABDOMEN: Soft, nontender, nondistended, normoactive bowel sounds. No palpable organomegaly. MUSCULOSKELETAL: No joint swelling or deformity. EXTREMITIES: No cyanosis, clubbing, or pedal edema. NEUROLOGICAL: Gross neurological examination did not reveal any focal deficits. SKIN: No rashes. - Labs CBC & Chem 7: 06/08/19 07:58 06/08/19 07:58 Labs: Abnormal Lab Results - Last 24 Hours (Table) 06/08/19 Range/Units 07:58 Chloride 109 H (98-107) mmol/L BUN 7 L (9-20) mg/dL Calcium 8.3 L (8.4-10.2) mg/dL ALT 64 H (4-49) U/L Total Protein 5.7 L (6.3-8.2) g/dL Albumin 2.8 L (3.5-5.0) g/dL Microbiology - Last 24 Hours (Table) 06/06/19 12:40 Group A Strep Throat Culture - Final Throat 06/06/19 14:50 Blood Culture - Preliminary Blood No Growth after 24 hours Assessment and Plan Assessment: 1. Multifocal pneumonia - We will continue with IV Rocephin and azithromycin; DuoNeb nebulizer treatments every 4 hours and when necessary; sputum and blood cultures are obtained in ED; we will adjust antibiotic therapy once culture results are available; O2 2 L per nasal cannula as needed; symptomatic treatment of pneumonia 2. Influenza PE; start patient on Tamiflu 75 mg by mouth every 12 hours; symptomatic treatment 3. Mild transaminitis; we will monitor liver enzymes and initiate further workup if transaminases continue to trend up 4. Mild hyponatremia; continue with normal saline for IV fluid hydration; monitor electrolytes closely 5. Mitral valve prolapse; asymptomatic; outpatient treatment 6. DVT prophylaxis; SCDs CODE STATUS; full code
--- NOTE | 2019-06-08 21:09 | PN ---
PROGRESS NOTE DATE OF SERVICE: 06/08/2019 REASON FOR FOLLOWUP: 1. Acute influenza. 2. Pneumonia. INTERVAL HISTORY: The patient is currently afebrile. The patient mentioned he is not feeling as well as he was feeling yesterday. The patient continues to have a cough but has been dry in nature. No chest pain. No nausea or vomiting. No abdominal pain. No diarrhea. PHYSICAL EXAMINATION: Blood pressure 120/57 with a pulse of 68, temperature 97.8. She is 95% on room air. General description is a young male lying in bed in no distress. Respiratory system: Unlabored breathing, decreased breath sounds at the bases. No wheeze. Heart S1, S2. Regular rate and rhythm. Abdomen soft. No tenderness. LABS: Hemoglobin is 13.4, white count 7.1. BUN of 7, creatinine 0.68. Blood culture has been negative. Sputum was not collected. DIAGNOSTIC IMPRESSION AND PLAN: Patient presented to hospital with fever, chills in this patient who did have evidence of acute influenza and multifocal pneumonia. The patient is currently covered with Rocephin, Tamiflu, Levaquin and repeat a chest x-ray tomorrow. Try to obtain a sputum to narrow down antibiotics. Continue supportive care. MMODL / IJN: [id number] /
[2019-06-08] MEDS: LEVOFLOXACIN 750 MG TAB PO SCH (21:16)
[2019-06-09 07:24] LABS: Glucose,Whole Blood 80 mg/dL (75-99)
--- NOTE | 2019-06-09 08:26 | XR ---
EXAMINATION TYPE: XR chest 2V DATE OF EXAM: 06/09/2019 COMPARISON: Chest x-ray 2 days ago and older studies. HISTORY: Multifocal pneumonia. TECHNIQUE: Frontal and lateral views of the chest are obtained. FINDINGS: There is persistent bilateral lower lobe and posterior inferior right upper lobe airspace opacities. New small to tiny pleural effusions with blunting of posterior costophrenic angles on late ral view. The cardiac silhouette size remains within normal limits. Overlying EKG leads again seen. The osseous structures are intact. IMPRESSION: Persistent multilobar multifocal pneumonia involving both lower lobes and right upper lo be. No significant interval change from most recent studies.
[2019-06-09] MEDS: OSELTAMIVIR 75 MG CAP PO SCH ×2 (09:19→20:33)
[2019-06-09] MEDS: SERTRALINE 100 MG TAB PO SCH (09:19)
[2019-06-09 09:49] LABS: Basophils % (A) 1 %; Eosinophils # (A) 0.2 k/uL (0-0.7); Eosinophils % (A) 3 %; HCT 40.7 % (39.0-53.0); HGB 13.5 gm/dL (13.0-17.5); Lymphocytes # (A) 1.2 k/uL (1.0-4.8); Lymphocytes % (A) 20 %; MCH 29.1 pg (25.0-35.0); MCHC 33.2 g/dL (31.0-37.0); MCV 87.7 fL (80.0-100.0); Mean Platelet Volume 7.3; Monocytes # (A) 0.3 k/uL (0-1.0); Monocytes % (A) 5 %; Neutrophils # (A) 4.4 k/uL (1.3-7.7); Neutrophils % (A) 70 %; Platelet Count 485 k/uL (150-450); RBC 4.64 m/uL (4.30-5.90); RDW 12.4 % (11.5-15.5); WBC 6.3 k/uL (3.8-10.6)
[2019-06-09 09:52] LABS: African American GFR (CKD) >90 (>60 ml/min/1.73 sqM); Anion Gap 6 mmol/L; Blood Urea Nitrogen 6 mg/dL (9-20); C Reactive Protein 57.1 mg/L (<10.0); Calcium 8.7 mg/dL (8.4-10.2); Carbon Dioxide 27 mmol/L (22-30); Chloride 107 mmol/L (98-107); Glucose 87 mg/dL (74-99); Non-African American GFR(CKD) >90 (>60 ml/min/1.73 sqM); Potassium 4.3 mmol/L (3.5-5.1); Sodium 140 mmol/L (137-145)
[2019-06-09 12:31] LABS: Glucose,Whole Blood 87 mg/dL (75-99)
--- NOTE | 2019-06-09 18:11 | P.PN ---
Subjective Progress Note Date: 06/09/19 Sneha 29-year-old gentleman admitted with influenza B, multifocal pneumonia and multiple other medical issues. Maintained on IV antibiotics and Tamiflu. Dilated by infectious disease, recommendations noted. Afebrile, normal WBC. Complains of significant weakness. Diet intake 100%. No nausea vomiting or diarrhea. Denies chest pain, palpitations or increased shortness of breath. Objective - Vital Signs Vital signs: Vital Signs Temp 98.3 F 06/09/19 13:57 Pulse 56 L 06/09/19 13:57 Resp 16 06/09/19 13:57 BP 118/71 06/09/19 13:57 Pulse Ox 96 06/09/19 13:57 Intake & Output 06/08/19 06/09/19 06/09/19 18:59 06:59 18:59 Intake Total 200 50 Balance 200 50 Intake: IV 50 [id number] 1 gm In 50 Sodium Chloride 0.9% 50 ml @ 100 mls/hr IVPB Q24HR [facility] Rx#:[id number] Oral 200 Other: Voiding Method Toilet # Voids 2 2 - Exam PHYSICAL EXAM: VITAL SIGNS: As above GENERAL: Sitting up in bed, no acute distress HEENT: Conjunctivae normal. eyes normal. NECK: No JVD. No thyroid enlargement. No LNs CARDIOVASCULAR: S1, S2 regular.. No murmur RESPIRATION: Breath sounds diminished in the bases. Occasional rhonchi, no crackles. No wheezing ABDOMEN: Soft, nontender . No guarding. no masses palpable. No ascites, No hepatosplenomegaly.Bowel sounds heard. LEGS: No edema. no swelling PSYCHIATRY: Alert and oriented X3, mood and affect normal. NERVOUS SYSTEM: Cranial N 2-12 grossly normal. Moves all 4 limbs. Diffuse weakness No focal deficits. Strength and sensation grossly intact.. Skin: no rash - Labs CBC & Chem 7: 06/09/19 09:17 06/09/19 09:17 Labs: Abnormal Lab Results - Last 24 Hours (Table) 06/09/19 06/09/19 Range/Units 09:17 09:17 Plt Count 485 H (150-450) k/uL BUN 6 L (9-20) mg/dL C-Reactive Protein 57.1 H (<10.0) mg/L Microbiology - Last 24 Hours (Table) 01/10/20 14:50 Blood Culture - Preliminary Blood No Growth after 72 hours Assessment and Plan Assessment: Influenza B Multifocal pneumonia Plan: Continue on current medication regime ,monitoring and indirect treatment. Maintain Tamiflu, Rocephin and IV fluid hydration. Increase ambulation as tolerated. Patient has not yet been able to produce sputum for culture. Discharge planning in progress for tomorrow. The impression and plan of care has been dictated as directed. : I performed a history and examination of this patient, discussed the same with the dictator. I agree with the dictator's note ,documented as a scribe. Any additional findings or plans will be noted.
[2019-06-09] MEDS: LEVOFLOXACIN 750 MG TAB PO SCH (20:33)
[2019-06-09] MEDS: IBUPROFEN 800 MG TAB PO PRN (20:35)
--- NOTE | 2019-06-09 22:38 | PN ---
PROGRESS NOTE DATE OF SERVICE: 06/09/2019 REASON FOR FOLLOWUP: 1. Acute influenza. 2. Pneumonia. INTERVAL HISTORY: The patient is currently afebrile, has been breathing comfortably. The patient denies having any chest pain or shortness of breath. He did have a cough, though decreased in intensity; not bringing up any sputum. No nausea, no vomiting, no abdominal pain or diarrhea. PHYSICAL EXAMINATION: Blood pressure is 118/71 with a pulse of 56, temperature 98.3. He is 96% on room air. General description is a middle-aged male lying in bed in no distress. RESPIRATORY SYSTEM: Unlabored breathing with decreased intensity of breath sounds. No wheeze. HEART: S1, S2. Regular rate and rhythm. ABDOMEN: Soft. No tenderness. LABS: Hemoglobin is 13.5, white count 6.3, BUN of 6, creatinine 0.67. Electrolytes have been normal. CRP is 57.1. DIAGNOSTIC IMPRESSION AND PLAN: 1. Patient with acute influenza, currently on Tamiflu, to finish a 5-day course of therapy. 2. Patient with multifocal pneumonia, possible community-acquired. X-ray did not show significant improvement; however, the patient's fever has resolved. Keep the patient on the Rocephin and Levaquin. Try to obtain a sputum sample to narrow down antibiotics. Continue with supportive care. MMODL / IJN: [id number] /
[2019-06-10] MEDS: SERTRALINE 100 MG TAB PO SCH (07:15)
[2019-06-10] MEDS: OSELTAMIVIR 75 MG CAP PO SCH (07:15)
[2019-06-10 10:55] LABS: HCT 44.4 % (39.0-53.0); HGB 14.5 gm/dL (13.0-17.5); MCH 28.8 pg (25.0-35.0); MCHC 32.7 g/dL (31.0-37.0); Mean Platelet Volume 9.7; RBC 5.05 m/uL (4.30-5.90); RDW 12.4 % (11.5-15.5); WBC 5.6 k/uL (3.8-10.6)
[2019-06-10 12:27] LABS: Eosinophils # (M) 0.17 k/uL (0-0.7); Lymphocytes # (M) 1.57 k/uL (1.0-4.8); Monocytes # (M) 0.67 k/uL (0-1.0); Neutrophils # (M) 3.19 k/uL (1.3-7.7); Neutrophils % (M) 57 %; Nucleated Red Blood Cells 0 /100 WBC (0-0); Total Cells Counted 100
--- NOTE | 2019-06-10 14:51 | P.DS ---
Providers Date of admission: 06/06/19 14:28 Attending physician: Jad Carrillo MD Consults: 06/06/19 17:37 Consult Physician Routine Consulting Provider: Marissa Cyr Consult Reason/Comments: multifocal multilobar PNA Do you want consulting provider notified?: Yes Primary care physician: Munira Valenzuela Patient Condition at Discharge: Fair Plan - Discharge Summary Discharge Rx Participant: No New Discharge Prescriptions: New Oseltamivir [Tamiflu] 75 mg PO Q12HR #3 cap Continue Citalopram Hydrobromide [CeleXA] 20 mg PO DIRECTED Albuterol Sulfate [Ventolin HFA] 2 puff INHALATION RT-Q6H PRN PRN Reason: Shortness Of Breath Sertraline HCl [Zoloft] 100 mg PO DIRECTED Ibuprofen 600 mg PO Q6H PRN PRN Reason: Pain Discontinued Azithromycin [Zithromax] See Taper PO DAILY Discharge Medication List Citalopram Hydrobromide [CeleXA] 20 mg PO DIRECTED 09/24/16 [History] Albuterol Sulfate [Ventolin HFA] 2 puff INHALATION RT-Q6H PRN 06/06/19 [History] Ibuprofen 600 mg PO Q6H PRN 06/06/19 [History] Sertraline HCl [Zoloft] 100 mg PO DIRECTED 06/06/19 [History] Oseltamivir [Tamiflu] 75 mg PO Q12HR #3 cap 06/10/19 [Rx] Follow up Appointment(s)/Referral(s): Munira Valenzuela MD [Primary Care Provider] - 3 Days Activity/Diet/Wound Care/Special Instructions: Antibx Pending from ID
[2019-06-10 16:24] VITALS: BP 117/54; PULSE 73; RESP 14; TEMP 98.3
--- NOTE | 2019-06-10 17:28 | PN ---
PROGRESS NOTE DATE OF SERVICE: 06/10/2019. REASON FOR FOLLOWUP: 1. Acute influenza. 2. Pneumonia. INTERVAL HISTORY: The patient is currently afebrile, has been breathing slightly comfortably. Patient denies having any chest pain; however, after taking a deep breath. Cough has decreased in intensity no nausea, no vomiting, no abdominal pain or diarrhea. PHYSICAL EXAMINATION: Blood pressure 117/54, pulse of 73, temperature 98.3. He is 94% on room air. General description is a middle-aged male lying in bed in no distress. RESPIRATORY SYSTEM: Unlabored breathing with decreased intensity of breath sounds. No wheeze. HEART: S1, S2. Regular rate and rhythm. ABDOMEN: Soft. No tenderness. LABS: Hemoglobin 14.5, white count 5.6. CRP is down to 34.7. Blood culture negative. He was unable to provide any sputum. DIAGNOSTIC IMPRESSION AND PLAN: 1. Patient with acute influenza, for which he will continue on Tamiflu to finish a 5- day course of therapy. 2. The patient has multifocal pneumonia, likely community-acquired. The patient has to finish therapy with oral Levaquin 750 daily for 7 days with close outpatient followup. MMODL / IJN: [id number] /
== END 2019-06-10 17:41 | disposition home or self-care (01) | DRG 194 ==
LOC: EC 11:14 → 6NMEDSUR 14:28
PROVIDERS: ADMIT Family Medicine; ATTEND Family Medicine
DX: J10.00 Influenza due to other identified influenza virus with unspecified type of pneumonia (principal); E87.1 Hypo-osmolality and hyponatremia; J45.909 Unspecified asthma, uncomplicated; I34.1 Nonrheumatic mitral (valve) prolapse; R74.0 Nonspecific elevation of levels of transaminase and lactic acid dehydrogenase [LDH]; Z79.899 Other long term (current) drug therapy; Z82.49 Family history of ischemic heart disease and other diseases of the circulatory system; Z83.3 Family history of diabetes mellitus
CPT/HCPCS: 36415; 71046; 80048; 80053; 80076; 83605; 84484; 85025; 86140; 86308; 87040; 87070; 87081; 87205; 87430; 87502; 93005; 94640; 94760; 96365; 96366; 96368; 96375; 99284

== ENCOUNTER 2023-09-08 20:01 | Emergency (ER) | payer BC ==
[2023-09-08 20:43] VITALS: RESP 18
--- NOTE | 2023-09-08 20:48 | ED ---
Skin/Abscess/FB HPI - General Chief complaint: Skin/Abscess/Foreign Body Stated complaint: rt knee pain Time Seen by Provider: 09/08/23 20:05 Source: patient, RN notes reviewed Mode of arrival: ambulatory Limitations: no limitations - History of Present Illness Initial comments: This is a 33-year-old male with complaint of right knee pain with possible i nsect bite. States that he noticed a mall area of abscess on his right knee that originated on Sunday night. Patient states that over the last few days he has had worsening pain of his right knee especially with flexion of the knee and associated erythema and edema. He denies fevers, nausea, vomiting. 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 - Related Data Home Medications Medication Instructions Recorded Confirmed Citalopram Hydrobromide [CeleXA] 20 mg PO DIRECTED 09/24/16 06/06/19 Albuterol Sulfate [Ventolin HFA] 2 puff INHALATION RT-Q6H PRN 06/06/19 06/06/19 Ibuprofen 600 mg PO Q6H PRN 06/06/19 06/06/19 Sertraline HCl [Zoloft] 100 mg PO DIRECTED 06/06/19 06/06/19 Previous Rx's Medication Instructions Recorded Levofloxacin [Levaquin] 750 mg PO HS #7 tab 06/10/19 Oseltamivir [Tamiflu] 75 mg PO Q12HR #3 cap 06/10/19 clindamycin HCL 300 mg PO QID #40 cap 09/08/23 Allergies Allergy/AdvReac Type Severity Reaction Status Date / Time No Known Allergies Allergy Verified 06/06/19 14:49 Review of Systems ROS Statement: Those systems with pertinent positive or pertinent negative responses have been documented in the HPI. ROS Other: All systems not noted in ROS Statement are negative. Past Medical History Past Medical History: Mitral Valve Prolapse (MVP) History of Any Multi-Drug Resistant Organisms: None Reported Past Surgical History: Hernia Repair Additional Past Surgical History / Comment(s): L inguinal hernia repair, L arm fracture with surgical repair. Past Anesthesia/Blood Transfusion Reactions: No Reported Reaction Past Psychological History: No Psychological Hx Reported Smoking Status: Never smoker Past Alcohol Use History: Occasional Past Drug Use History: None Reported - Past Family History Mother Family Medical History: Congestive Heart Failure (CHF), Myocardial Infarction (MD), Thyroid Disorder Additional Family Medical History / Comment(s): Mother had a MD at the age of 45yrs,. Father Family Medical History: Diabetes Mellitus, Hypertension Additional Family Medical History / Comment(s): Type II diabetes. General Exam - General Exam Comments Initial Comments: Visual Physical Exam Vital signs reviewed General: Well-appearing, nontoxic, no acute distress. Head: Normocephalic, atraumatic Eyes: PERRLA, EOMI ENT: Airway patent Chest: Nonlabored breathing Skin: No visual rash, normal skin tone Neuro: Alert and oriented 3 Musculoskeletal: No gross abnormalities Limitations: no limitations General appearance: alert, in no apparent distress Head exam: Present: atraumatic, normocephalic, normal inspection Eye exam: Present: normal appearance, PERRL, EOMI. Absent: scleral icterus, conjunctival injection, periorbital swelling ENT exam: Present: normal exam, mucous membranes moist Neck exam: Present: normal inspection. Absent: tenderness, meningismus, lymphadenopathy Respiratory exam: Present: normal lung sounds bilaterally. Absent: respiratory distress, wheezes, rales, rhonchi, stridor Cardiovascular Exam: Present: regular rate, normal rhythm, normal heart sounds. Absent: systolic murmur, diastolic murmur, rubs, gallop, clicks GI/Abdominal exam: Present: soft, normal bowel sounds. Absent: distended, tenderness, guarding, rebound, rigid Right Knee exam: Present: tenderness (over the anterior knee joint with palpation, pain with active and passive ROM over the anterior knee), swelling, erythema. Absent: full ROM, ecchymosis, deformity, crepitus, dislocation Back exam: Present: normal inspection Neurological exam: Present: alert, oriented X3, CN II-XII intact Psychiatric exam: Present: normal affect, normal mood Skin exam: Present: warm, dry, intact, normal color. Absent: rash Course Vital Signs 09/08/23 20:16 Temperature 98 F Pulse Rate 93 Respiratory 18 Rate Blood Pressure 116/69 O2 Sat by Pulse 96 Oximetry Procedures - Incision & Drainage Consent Obtained: verbal consent Site: lower extremity (right knee) Anesthetic Used: lidocaine 2%, with epi I&D Cleaning Method: Chloroprep Sterile Field Used?: Yes Scalpel Used: #11 Needle Aspiration Performed?: Yes (unsuccessful) I&D Drainage Obtained: Pus (0.5 cc pus), Blood Insertion of drain: No Culture Obtained?: No Complications: pain Patient Tolerated Procedure: well, no complications Medical Decision Making - Medical Decision Making Was pt. sent in by a medical professional or institution (LOTTIE Montelongo, DIRECTOR OF EPIDEMIOLOGY, urgent care, hospital, or correction...) When possible be specific @ -No Did you speak to anyone other than the patient for history (EMS, parent, family, police, friend...)? What history was obtained from this source @ -No Did you review nursing and triage notes (agree or disagree)? Why? @ -I reviewed and agree with nursing and triage notes Were old charts reviewed (outside hosp., previous admission, EMS record, old EKG, old radiological studies, urgent care reports/EKG's, correction records)? Report findings @ -No old charts were reviewed Differential Diagnosis (chest pain, altered mental status, abdominal pain women, abdominal pain men, vaginal bleeding, weakness, fever, dyspnea, syncope, headache, dizziness, GI bleed, back pain, seizure, CVA, palpatations, mental health, musculoskeletal)? @ -Septic bursitis, prepatellar bursitis, abscess EKG interpreted by me (3pts min.). @ -None X-rays interpreted by me (1pt min.). @ -The x-ray of the right knee reveals no acute bony abnormality, There is soft tissue swelling noted CT interpreted by me (1pt min.). @ -None done U/S interpreted by me (1pt. min.). @ -None done What testing was considered but not performed or refused? (CT, X-rays, U/S, labs)? Why? @ -None What meds were considered but not given or refused? Why? @ -None Did you discuss the management of the patient with other professionals (professionals i.e. LOTTIE Montelongo, DIRECTOR OF EPIDEMIOLOGY, lab, RT, psych nurse, manager social media, cyber engineer, teacher, vessel traffic officer, showcase trimmer)? Give summary @ -No Was smoking cessation discussed for >3mins.? @ -No Was critical care preformed (if so, how long)? @ -No Were there social determinants of health that impacted care today? How? (Homelessness, low income, unemployed, alcoholism, drug addiction, transportation, low edu. Level, literacy, decrease access to med. care, penitentiary, rehab)? @ -No Was there de-escalation of care discussed even if they declined (Discuss DNR or withdrawal of care, Hospice)? DNR status @ -No What co-morbidities impacted this encounter? (DM, HTN, Smoking, COPD, CAD, Cancer, CVA, ARF, Chemo, Hep., AIDS, mental health diagnosis, sleep apnea, morbid obesity)? @ -None Was patient admitted / discharged? Hospital course, mention meds given and route, prescriptions, significant lab abnormalities, going to OR and other pertinent info. @ -33-year-old male with right knee pain. On physical examination patient noted to have a erythematous and edematous right knee with an area of about 1/4 cm of purulence with no overt signs of drainage. Patient tender to palpation over the anterior knee in addition to pain elicited with active and passive range of motion of the knee. Patient given IM dose of Rocephin area was painted with chlorhexidine and roughly 2 cc of 2% lidocaine with 1% epi were locally infiltrated at the area of concern. Attempt of aspiration was unsuccessful. Patient will be discharged home with oral clindamycin. Instruct patient strict follow-up parameters to visit primary care physician on Sunday for further evaluation. Discussed if patient begins to experience fevers, chills, body aches, nausea or vomiting please return back to the emergency department for further evaluation. Patient is in agreement with this and in understanding. Discussed with Dr. Herring Undiagnosed new problem with uncertain prognosis? @ -No Drug Therapy requiring intensive monitoring for toxicity (Heparin, Nitro, Insulin, Cardizem)? @ -No Were any procedures done? @ -No Diagnosis/symptom? @ -Infective bursitis of the right knee, right knee pain Acute, or Chronic, or Acute on Chronic? @ -Acute Uncomplicated (without systemic symptoms) or Complicated (systemic symptoms)? @ -uncomplicated Side effects of treatment? @ -No Exacerbation, Progression, or Severe Exacerbation? @ -No Poses a threat to life or bodily function? How? (Chest pain, USA, MD, pneumonia, PE, COPD, DKA, ARF, appy, cholecystitis, CVA, Diverticulitis, Homicidal, Suicidal, threat to staff... and all critical care pts) @ -No Disposition Clinical Impression: Other infective bursitis, right knee, Prepatellar bursitis, right knee Narrative: Please return to the Emergency Department if symptoms worsen or you begin to develop fevers, chills, body aches, nausea, vomiting, worsening joint and knee pain Or any other concerns. Full course of antibiotics as prescribed. Continue to cycle Tylenol and Motrin at home for symptomatic relief follow-up with your primary care physician on Sunday or Sunday of next week for further evaluation. Disposition: HOME SELF-CARE Condition: Good Instructions (If sedation given, give patient instructions): Knee Bursitis (ED) Prescriptions: clindamycin HCL 300 mg PO QID #40 cap Is patient prescribed a controlled substance at d/c from ED?: No Referrals: Paris Carrillo DO [Primary Care Provider] - 1-2 days Time of Disposition: 22:52
--- NOTE | 2023-09-08 21:57 | XR ---
EXAMINATION TYPE: XR knee complete RT DATE OF EXAM: 09/08/2023 9:53 PM CLINICAL INDICATION:Male, 33 years old with history of erythema, swelling; [facility] COMPARISON: None. TECHNIQUE: XR knee complete RT; examined in Frontal, lateral and oblique projections. FINDINGS: There is soft tissue swelling throughout the prepatellar soft tissues. No evidence for oss eous erosion. No evidence of any acute osseous pathology, or joint effusion is noted. IMPRESSION: 1. Soft tissue swelling without acute osseous pathology. No evidence for osseous erosion.
[2023-09-08] MEDS: cefTRIAXone 1,000 MG VIAL (IM USE) IM STA ×2 (22:36→22:37)
[2023-09-08] MEDS: LIDOCAINE 2%-EPI 1:100,000 20 ML VIAL SQ STA (22:36)
[2023-09-08 23:56] VITALS: BP 133/75; PULSE 76; TEMP 99
== END 2023-09-09 01:13 | disposition home or self-care (01) ==
LOC: EC 20:01 → SUPCPDRO 20:01 → EC 09-09 01:13
DX: M71.161 Other infective bursitis, right knee (principal)
CPT/HCPCS: 73562; 10060; 99283; 96372; J0696

== ENCOUNTER 2024-09-05 10:42 | Emergency (ER) | payer BC ==
[2024-09-05 10:47] VITALS: TEMP 98
[2024-09-05 12:10] LABS: Partial Thromboplastin Time 26.5 sec (22.0-30.0); Prothrombin Time 11.4 sec (10.0-12.5)
[2024-09-05 12:14] LABS: ALT 40 U/L (4-49); AST 29 U/L (17-59); African American GFR (CKD) >90 (>60 ml/min/1.73 sqM); Albumin 4.8 g/dL (3.5-5.0); Alkaline Phosphatase 71 U/L (38-126); Anion Gap 9 mmol/L; Blood Urea Nitrogen 13 mg/dL (9-20); Calcium 9.5 mg/dL (8.4-10.2); Carbon Dioxide 30 mmol/L (22-30); Chloride 98 mmol/L (98-107); Glucose 122 mg/dL (74-99); Magnesium 1.8 mg/dL (1.6-2.3); Non-African American GFR(CKD) >90 (>60 ml/min/1.73 sqM); Potassium 4.5 mmol/L (3.5-5.1); Sodium 137 mmol/L (137-145); Total Bilirubin 0.9 mg/dL (0.2-1.3); Total Protein 7.8 g/dL (6.3-8.2)
--- NOTE | 2024-09-05 12:26 | XR ---
EXAMINATION TYPE: XR chest 2V DATE OF EXAM: 09/05/2024 12:11 PM COMPARISON: 06/09/2019 CLINICAL INDICATION: Male, 34 years old with history of Chest Pain, TECHNIQUE: XR chest 2V view(s) obtained. FINDINGS: The heart size is normal. The pulmonary vasculature is normal. The lungs are clear. IMPRESSION: 1. No acute pulmonary process. [facility], , 09/05/2024 12:23 PM
[2024-09-05 12:27] LABS: Basophils # (A) 0.08 10*3/uL (0.00-0.10); Basophils % (A) 1.7 %; Eosinophils % (A) 8.3 %; HCT 45.8 % (39.6-50.0); HGB 15.3 g/dL (13.0-17.0); Lymphocytes # (A) 1.51 10*3/uL (0.90-5.00); Lymphocytes % (A) 31.2 %; MCH 29.4 pg (27.0-32.0); MCHC 33.4 g/dL (32.0-37.0); MCV 87.9 fL (80.0-97.0); Mean Platelet Volume 9.8 fL (9.5-12.2); Monocytes # (A) 0.38 10*3/uL (0.20-1.00); Monocytes % (A) 7.9 %; Neutrophils # (A) 2.46 10*3/uL (1.80-7.70); Neutrophils % (A) 50.7 %; Platelet Count 319 10*3/uL (140-440); RBC 5.21 10*6/uL (4.40-5.60); RDW 12.5 % (11.5-14.5); WBC 4.84 10*3/uL (4.50-10.00)
--- NOTE | 2024-09-05 12:30 | ED ---
Chest Pain HPI - General Chief Complaint: Chest Pain Stated Complaint: Chest Pain Time Seen by Provider: 09/05/24 10:48 Source: patient, RN notes reviewed Mode of arrival: ambulatory Limitations: no limitations - History of Present Illness Initial Comments: This is a 34-year-old male who presents to the emergency department for chest pain. States that it has been intermittent over the last week. Pain is not currently present. This does not correlate with activity and he is unable to attribute any specific cause to it. Denies any shortness of breath. Pain does not radiate anywhere. Denies any nausea or vomiting. Denies any personal or family history of cardiac issues. MD Complaint: chest pain - Related Data Home Medications Medication Instructions Recorded Confirmed LORazepam [Ativan] 0.5 mg PO DAILY PRN 09/05/24 09/05/24 hydrOXYzine HCL [Atarax] 25 - 50 mg PO BID PRN 09/05/24 09/05/24 Allergies Allergy/AdvReac Type Severity Reaction Status Date / Time No Known Allergies Allergy Verified 09/05/24 11:39 Review of Systems ROS Statement: Those systems with pertinent positive or pertinent negative responses have been documented in the HPI. ROS Other: All systems not noted in ROS Statement are negative. Past Medical History Past Medical History: Mitral Valve Prolapse (MVP) History of Any Multi-Drug Resistant Organisms: None Reported Past Surgical History: Hernia Repair Additional Past Surgical History / Comment(s): L inguinal hernia repair, L arm fracture with surgical repair. Past Anesthesia/Blood Transfusion Reactions: No Reported Reaction Past Psychological History: No Psychological Hx Reported Smoking Status: Never smoker Past Alcohol Use History: Occasional Past Drug Use History: None Reported - Past Family History Mother Family Medical History: Congestive Heart Failure (CHF), Myocardial Infarction (NV), Thyroid Disorder Additional Family Medical History / Comment(s): Mother had a NV at the age of 45yrs,. Father Family Medical History: Diabetes Mellitus, Hypertension Additional Family Medical History / Comment(s): Type II diabetes. General Exam Limitations: no limitations General appearance: alert, in no apparent distress Head exam: Present: atraumatic, normocephalic, normal inspection Respiratory exam: Present: normal lung sounds bilaterally. Absent: respiratory distress, wheezes, rales, rhonchi, stridor Cardiovascular Exam: Present: regular rate, normal rhythm Neurological exam: Present: alert, oriented X3, CN II-XII intact Psychiatric exam: Present: normal affect, normal mood Skin exam: Present: warm, dry, intact, normal color. Absent: rash Course Vital Signs 09/05/24 09/05/24 10:43 13:14 Temperature 98.0 F Pulse Rate 74 58 L Respiratory 17 18 Rate Blood Pressure 132/81 109/69 O2 Sat by Pulse 99 96 Oximetry Chest Pain MDM - MDM This is a 34 year old male who presents to the emergency department for chest pain. Was pt. sent in by a medical professional or institution? @ -No Did you speak to anyone other than the patient for history? @ -No Did you review nursing and triage notes? @ -Yes, and I agree, it is accurate with regards to the patient's symptoms. Were old charts reviewed? @ -No Differential Diagnosis? @ -Differential Chest Pain: Stable Angina, Unstable Angina, STEMI, NSTEMI Aortic Dissection, Pneumothorax, Musculoskeletal, Esophageal Spasm GERD, Cholecystitis, Pancreatitis, Zoster, this is not meant to be an all-inclusive list. EKG interpreted by me (3pts min.)? @ -EKG interpreted by me demonstrating the following: Sinus rhythm. Ventricular rate 72 bpm, SC interval 162 ms, QRS duration 97 ms, QTc 385 ms. X-rays interpreted by me (1pt min.)? @ -Chest x-ray obtained, my interpretation identifies no localized consolidations or infiltrates. CT interpreted by me (1pt min.)? @ -Not obtained U/S interpreted by me (1pt. min.)? @ -Not obtained What testing was considered but not performed? (CT, X-rays, U/S, labs)? Why? @ -None What meds were considered but not given? Why? @ -None Did you discuss the management of the patient with other professionals? @ -No Did you reconcile home meds? @ -No Was smoking cessation discussed for >3mins.? @ -No Was critical care preformed (if so, how long)? @ -No Were there social determinants of health that impacted care today? How? (Homelessness, low income, unemployed, alcoholism, drug addiction, transportation, low edu. Level, literacy, decrease access to med. care, [facility], rehab)? @ -No Was there de-escalation of care discussed even if they declined? (Discuss DNR or withdrawal of care, Hospice)? @ -No What co-morbidities impacted this encounter? (DM, HTN, Smoking, COPD, CAD, Cancer, CVA, Hep., AIDS, mental health diagnosis, sleep apnea, morbid obesity)? @ -None Was patient admitted / discharged? @ -Discharged. Lab work unremarkable. Troponin negative. Chest x-ray reveals no acute process. Patient remained asymptomatic in the emergency department. He has no personal or family history of CAD. Given his low cardiac score, advised that he can be discharged home to follow-up outpatient. Patient discharged home in stable condition. Case discussed with ED attending, Dr. Mercado. Return precautions reviewed in depth, the patient is instructed to return to the emergency department with any new, worsening, or concerning symptoms. Patient verbalized understanding. Undiagnosed new problem with uncertain prognosis? @ -None Drug Therapy requiring intensive monitoring for toxicity (Heparin, Nitro, Insulin, Cardizem)? @ -None Were any procedures done? @ -None Diagnosis/symptom? @ -Chest pain Acute, or Chronic, or Acute on Chronic? @ -Acute Uncomplicated (without systemic symptoms) or Complicated (systemic symptoms)? @ -Uncomplicated Side effects of treatment? @ -None Exacerbation, Progression, or Severe Exacerbation] @ -Not applicable Poses a threat to life or bodily function? @ -Unlikely Disposition Clinical Impression: Chest pain Disposition: HOME SELF-CARE Instructions (If sedation given, give patient instructions): Chest Pain (ED), Noncardiac Chest Pain (ED) Additional Instructions: Return to the emergency department with any new, worsening, or concerning symptoms. If the pain returns, you can try taking ibuprofen and Tylenol as needed for pain relief. Follow up with your primary care provider in 1-2 days. Is patient prescribed a controlled substance at d/c from ED?: No Referrals: None,Stated [Primary Care Provider] - 1-2 days Forms: Area PCPs Time of Disposition: 13:06
[2024-09-05 13:15] VITALS: BP 109/69; PULSE 58; RESP 18
== END 2024-09-05 13:26 | disposition home or self-care (01) ==
LOC: EC 10:42
DX: R07.9 Chest pain, unspecified (principal)
CPT/HCPCS: 36415; 71046; 80053; 83735; 84484; 85025; 85610; 85730; 93005; 99285